=== PATIENT | female | born 1985 | race Caucasian/White ===

== ENCOUNTER 2016-09-08 18:11 | Inpatient (IN) | payer MEDICAID ==
[~2016-09-08] VITALS: Ht 147.3 cm; Wt 71.8 kg
[2016-09-08 18:58] VITALS: Ht 147.3 cm; Wt 71.8 kg
[2016-09-08 19:00] VITALS: BP 128/76; PULSE 93; RESP 18
[2016-09-08] MEDS ORDERED: PREN1TAB13 PO (19:03)
--- NOTE | 2016-09-08 19:28 | RADRPT ---
PROCEDURE: US OB biophysical profile. CLINICAL INDICATION: decreased movements TECHNIQUE: Multiple sonographic images of the pelvis were obtained. The images were reviewed on a PACS workstation. COMPARISON: No prior studies are available for comparison. FINDINGS: There is a single viable intrauterine gestation. Cardiac activity is present with 144 beats per min azael. There is a vertex presentation. The placenta is posterior. There is no evidence of placental abruption. There is a normal amount of amniotic fluid with an THEO = 14.4 cm. Biophysical profile: movement 2/2 tone 2/2. breathing 2/2 THEO 2/2 Total 11/11 RPTAT: AA . IMPRESSION: Normal biophysical profile. . .Scott Valdez MD, MD Date Time Electronically viewed and signed by .Scott Valdez MD, MD on 09/08/2016 19:27 .S/
--- NOTE | 2016-09-08 19:30 | RADRPT ---
PROCEDURE: US OB. CLINICAL INDICATION: Size and dates , contractions TECHNIQUE: Multiple sonographic images of the pelvis and gravid uterus were obtained. The images were reviewed on a PACS workstation. COMPARISON: No prior studies are available for comparison. FINDINGS: There is a single viable intrauterine gestation. Cardiac activity is present with 163 beats per min knik. There is a vertex presentation. The placenta is posterior. There is no evidence for an abruption or placenta previa. There is a normal amount of amniotic fluid with an THEO = 14.4 cm. Measurements were made in order to determine age. The results are as follows: BPD =9.1 cm HC =31.9 cm AC =35.7 cm FL =7.2 cm Estimated gestational age of approximately 37 weeks and 2 days based on ultrasound measurements. Clinical age: 37 weeks and 0 days. The estimated date of delivery is 09/27/16, based on ultrasound measurements. The EFW = 3430 g, 85%, based on LMP age. RPTAT: AA IMPRESSION: Single viable intrauterine gestation of approximately 37 weeks and 2 days based on ultrasound measu rements. .Scott Valdez MD, Date Time Electronically viewed and signed by .Scott Valdez MD, on 09/08/2016 19:29 .S/
[2016-09-08 19:46] LABS: ADD UMIC NO; URINE BILIRUBIN (Dip) NEGATIVE (NEGATIVE); URINE BLOOD (Dip) NEGATIVE (NEGATIVE); URINE COLOR LT. YELLOW (YELLOW); URINE GLUCOSE (Dip) NEGATIVE (NEGATIVE); URINE KETONES (Dip) 15 (NEGATIVE); URINE LEUKOCYTE ESTERASE (Dip) NEGATIVE (NEGATIVE); URINE NITRITE (Dip) NEGATIVE (NEGATIVE); URINE TOTAL PROTEIN (Dip) NEGATIVE (NEGATIVE); URINE UROBILINOGEN (Dip) 0.2 E.U./dL (0.1-1.0)
[2016-09-08 19:49] LABS: ADD SCAN DIFF NO
[2016-09-08 19:53] LABS: BASOPHILS % 0.2 % (0.0-2.0); EOSINOPHILS # 0.1 10^3/ul (0.0-0.5); EOSINOPHILS % 0.9 % (0.0-7.0); HEMATOCRIT 35.6 % (37.0-47.0); HEMOGLOBIN 12.1 g/dl (12.0-16.0); LYMPHOCYTES # 1.5 10^3/ul (0.8-2.9); LYMPHOCYTES % 16.6 % (15.0-51.0); MEAN CORPUSCULAR HEMOGLOBIN 31.8 pg (29.0-33.0); MEAN CORPUSCULAR VOLUME 93.7 fl (82.0-101.0); MEAN PLATELET VOLUME 11.6 fl (7.4-10.4); MONOCYTE # 0.6 10^3/ul (0.3-0.9); MONOCYTES % 7.2 % (0.0-11.0); NEUTROPHIL # 6.6 10^3/ul (1.6-7.5); NEUTROPHILS % 74.4 % (39.0-77.0); PLATELET COUNT 198 10^3/UL (140-415); RED CELL DISTRIBUTION WIDTH 13.3 % (11.5-14.5); WHITE BLOOD COUNT 8.8 10^3/ul (4.8-10.8)
[2016-09-08 20:03] LABS: INR 0.88; PROTIME 11.9 Sec (12.2-14.2); PT RATIO 0.9
[2016-09-08 20:11] LABS: ALBUMIN 4.1 g/dl (3.3-4.9); ALBUMIN/GLOBULIN RATIO 1.41; BILIRUBIN,INDIRECT 0.2 mg/dl (0-1.1); BILIRUBIN,TOTAL 0.2 mg/dl (0.2-1.3); CALCIUM 9.4 mg/dl (8.4-10.2); CREATININE 0.47 mg/dl (0.44-1.00); POTASSIUM 3.9 mmol/L (3.5-5.1); URIC ACID 6.1 mg/dl (3.1-7.9)
[2016-09-08] MEDS ORDERED: LACTATED RINGER'S 1,000 ML IV SCH (20:54)
[2016-09-08] MEDS ORDERED: CEFAZOLIN 2 GM/50 ML (PMX) 50 ML IV SCH (21:00)
[2016-09-08] MEDS ORDERED: OXYTOCIN 30 UNITS/LR 500 ML IV PRN (21:00)
[2016-09-08] MEDS ORDERED: METHYLERGONOVINE 0.2 MG INJ IM PRN (21:00)
[2016-09-08] MEDS ORDERED: MISOPROSTOL 200 MCG TAB PR PRN (21:00)
[2016-09-08] MEDS ORDERED: CARBOPROST 250 MCG INJ IM PRN (21:00)
[2016-09-08] MEDS ORDERED: OXYTOCIN 30 UNITS/LR 500 ML IV SCH (21:00)
[2016-09-08] MEDS ORDERED: CITRIC ACID/SODIUM CITRATE 15 ML CUP ONE ×2 (21:11→21:17)
[2016-09-08] MEDS ORDERED: ONDANSETRON 4 MG INJ ONE (21:11)
[2016-09-08] MEDS ORDERED: ONDANSETRON 4 MG INJ IV STA (21:33)
[2016-09-08] MEDS ORDERED: morphine SULFATE/PF (10 MG/10 ML) INJ ONE (21:53)
[2016-09-08] MEDS ORDERED: FENTAnyl 50 MCG/ML VIAL ONE (21:53)
[2016-09-08] MEDS ORDERED: PHENYLephrine (100 MCG/ML) 5ML SYG ONE (21:53)
[2016-09-08] MEDS ORDERED: OXYTOCIN 10 UNIT INJ ONE (21:53)
[2016-09-08] MEDS ORDERED: METOCLOPRAMIDE 10 MG INJ ONE (21:53)
[2016-09-08] MEDS ORDERED: CITRIC ACID/SODIUM CITRATE 15 ML CUP PO ONE (22:00)
[2016-09-08] MEDS ORDERED: MIDAZOLAM 1 MG/ML 2 ML INJ IV PRN (22:30)
[2016-09-08] MEDS ORDERED: DIPHENHYDRAMINE 50 MG INJ IV PRN ×2 (22:30)
[2016-09-08] MEDS ORDERED: TRIMETHOBENZAMIDE 100 MG/ML VIAL IM PRN (22:30)
[2016-09-08] MEDS ORDERED: EPHEDrine SULFATE 50 MG/5 ML SYG IV PRN (22:30)
[2016-09-08] MEDS ORDERED: HYDROmorphONE (0.2 MG/ML) 10ML SYG IV PRN ×3 (22:30)
[2016-09-08] MEDS ORDERED: NALOXONE (0.4 MG/ML) INJ IV PRN (22:30)
[2016-09-08] MEDS ORDERED: MEPERIDINE 25 MG INJ IV PRN (22:30)
[2016-09-08] MEDS ORDERED: FENTAnyl 50 MCG/ML VIAL IV PRN ×3 (22:30)
[2016-09-08] MEDS ORDERED: LABETALOL HCL 20MG INJ IV PRN (22:30)
[2016-09-08] MEDS ORDERED: ZOLPIDEM 5 MG TAB PO PRN (22:30)
[2016-09-08] MEDS ORDERED: morphine 2 MG INJ IV PRN ×2 (22:30)
[2016-09-08] MEDS ORDERED: ONDANSETRON 4 MG INJ IV PRN ×2 (22:30)
[2016-09-08] MEDS ORDERED: hydrALAzine 20 MG INJ IV PRN (22:30)
[2016-09-09 01:45] VITALS: BP 129/67; PULSE 72; RESP 18
[2016-09-09] MEDS ORDERED: LANOLIN 7 GM TUBE TOP PRN (02:00)
[2016-09-09] MEDS ORDERED: METHYLERGONOVINE 0.2 MG INJ IM PRN (02:00)
[2016-09-09] MEDS ORDERED: MISOPROSTOL 200 MCG TAB PR PRN (02:00)
[2016-09-09] MEDS ORDERED: CARBOPROST 250 MCG INJ IM PRN (02:00)
[2016-09-09] MEDS ORDERED: OXYTOCIN 30 UNITS/LR 500 ML IV PRN (02:00)
[2016-09-09 04:11] VITALS: BP 128/69; PULSE 86; RESP 18
[2016-09-09] MEDS: LACTATED RINGER'S 1,000 ML IV SCH ×3 (05:02→16:38)
[2016-09-09] MEDS: KETOROLAC 30 MG INJ IV PRN ×2 (05:28→16:37)
[2016-09-09 08:00] VITALS: BP 124/70; PULSE 70; RESP 18
[2016-09-09 08:09] LABS: ADD SCAN DIFF NO
[2016-09-09 08:13] LABS: BASOPHILS % 0.3 % (0.0-2.0); EOSINOPHILS # 0.1 10^3/ul (0.0-0.5); EOSINOPHILS % 1.1 % (0.0-7.0); HEMATOCRIT 30.7 % (37.0-47.0); HEMOGLOBIN 10.4 g/dl (12.0-16.0); LYMPHOCYTES # 1.3 10^3/ul (0.8-2.9); LYMPHOCYTES % 17.2 % (15.0-51.0); MEAN CORPUSCULAR HGB CONC 33.9 g/dl (32.0-37.0); MEAN CORPUSCULAR VOLUME 94.5 fl (82.0-101.0); MEAN PLATELET VOLUME 11.7 fl (7.4-10.4); MONOCYTE # 0.7 10^3/ul (0.3-0.9); MONOCYTES % 9.1 % (0.0-11.0); NEUTROPHIL # 5.3 10^3/ul (1.6-7.5); NEUTROPHILS % 71.8 % (39.0-77.0); PLATELET COUNT 172 10^3/UL (140-415); RED BLOOD COUNT 3.25 10^6/ul (4.20-5.40); RED CELL DISTRIBUTION WIDTH 13.2 % (11.5-14.5); WHITE BLOOD COUNT 7.4 10^3/ul (4.8-10.8)
--- NOTE | 2016-09-09 08:20 | QN ---
Documentation Comment POD#1 is stable afebrile tolerates diet No VB +Flatus +Adequate urine VS stable Gen NAD Abd soft NT ND Dressing to be removed Genitalia No blood at perinium --->Ambulation --->discharge plan tomorrow ANDRA SMITH M.D. Sep 09, 2016 08:20
--- NOTE | 2016-09-09 08:22 | HP ---
Date/Time of Note Date/Time of Note DATE: 09/09/16 TIME: 08:20 OB - History Hx of Present Free Text/Dictation @37+wks GA in early labor Previous c/section : 4 Para: 3 Care: Good Care Ultrasounds: Normal mid trimester US Obstetrical Complications: None Medical Complications: None Past Family/Social History * Past Medical, Surgical, Family and Obstetric Histories reviewed from chart. OB Admission Exam Vital Signs Vital Signs Vital Signs Date Time Temp Pulse Resp B/P Pulse Ox O2 Delivery O2 Flow Rate FiO2 09/09/16 04:11 98.5 86 18 128/69 Room Air 09/09/16 03:38 97 21 Physical Exam Abdomen: WNL Extremities: Normal Cervical Dilatation: 2cm Effacement: 75% Station: -1 Membranes: Intact Heart Rate: 140's Accelerations: Accelerations Present Decelerations: No Decelerations Varibility: Moderate Contractions on Admission: < 5 Minutes Apart Last 72 hours Lab Results CBC & BMP 09/08/16 19:40 09/09/16 07:36 Liver Function Test 09/08/16 19:40 Alanine Aminotransferase (ALT/SGPT) 48 Albumin 4.1 Alkaline Phosphatase 203 H Aspartate Amino Transf (AST/SGOT) 34 Direct Bilirubin 0.00 Total Protein 7.0 OB Assessment/Plan Reason for admission: section Plan: Section ANDRA SMITH M.D. Sep 09, 2016 08:22
--- NOTE | 2016-09-09 08:23 | OPR ---
Operative Report Planned Procedure Free Text/Dictation @37+wks GA in early labor Previous c/section Procedure date Sep 09, 2016 Procedure(s) repeat c/section Performed by: ANDRA SMITH M.D. Assisting provider: DAFNE REBOLLAR Anesthesiologist: Gene eVla M.D. Pre-procedure diagnosis @37+wks GA in early labor Previous c/section Anesthesia Type: spinal Procedure Description Under satisfactory [] anesthesia, the patient was prepped and draped and placed in a supine position, tilted to the left. Pfannenstiel incision was made, carried through the subcutaneous tissue. Bleeders brought under control with electrocautery. Fascia incised to the length of the incision. Rectus muscles from the fascia, divided midline. Peritoneum exposed, entered through a transverse incision. Exploration of abdomen revealed gravid uterus. Bladder flap was developed. Transverse incision was made in the lower segment of the uterus. Amniotic sac ruptured. [] amniotic fluid noted. [] Nasal oropharyngeal suction was performed. The baby was handed to the team for immediate attention. The placenta was delivered manually intact. Uterine cavity was cleaned with wet sponge and drainage established. Uterus closed in 2 layers using [] in continuous fashion. Peritoneal cavity irrigated with warm saline. Sponge, needle and instrument count reported to be correct. Abdominal peritoneum closed with [] continuously. Rectus muscle approximated with []. Fascia closed with [], and skin closed with darrell. Estimated blood loss [600] mL. Urine bag contained []mL of urine Post-Procedure Findings: Live Baby [], Apgars [] and [], weight [], position [], [] presentation []cord. Specimen removed: Yes Complications: None Complications none Pt Condition post procedure: stable Disposition: PACU Physician Certification I, the undersigned physician, hereby certify that I have discussed the procedure described in this consent form with this patient (or the patient's legal metals sales representative), including: * The risk and benefits of the procedure; * Any adverse reactions that may reasonably be expected to occur; * Any alternative efficacious methods of treatment which may be medically viable ; * The potential problems that may occur during recuperation; * Potential for blood transfusion and associated risks/benefits; and * Any research or economic interest I may have regarding this treatment. I further certify that the patient/legally responsible person was encouraged to ask question and that all questions were answered. ANDRA SMITH M.D. Sep 09, 2016 08:23
[2016-09-09] MEDS: SENNA/DOCUSATE NA (8.6MG/50MG) TAB PO SCH ×2 (09:32→20:39)
[2016-09-09 12:00] VITALS: BP 115/78; PULSE 70; RESP 16
[2016-09-09 16:00] VITALS: BP 121/74; PULSE 80; RESP 18
[2016-09-09] MEDS: IBUPROFEN 600 MG TAB PO SCH ×2 (18:00→23:32)
[2016-09-09 19:45] VITALS: BP 108/67; PULSE 82; RESP 18
[2016-09-10] MEDS: OXYCODONE/ACETAMINOPHEN (5/325) TAB PO PRN ×3 (01:24→19:30)
[2016-09-10] MEDS: LACTATED RINGER'S 1,000 ML IV SCH (01:43)
[2016-09-10 03:30] VITALS: BP 110/70; PULSE 88; RESP 20
[2016-09-10] MEDS: IBUPROFEN 600 MG TAB PO SCH ×4 (05:48→23:23)
[2016-09-10 08:00] VITALS: BP 109/65; PULSE 70; RESP 18
[2016-09-10] MEDS: SENNA/DOCUSATE NA (8.6MG/50MG) TAB PO SCH ×2 (09:17→21:17)
[2016-09-10 16:00] VITALS: BP 129/79; PULSE 18; RESP 17
[2016-09-10 19:30] VITALS: BP 132/80; PULSE 75; RESP 17
--- NOTE | 2016-09-10 23:58 | QN ---
Documentation Comment POD#2 is stable afebrile tolerates diet No VB +BM +voids VS stable Gen NAD Abd soft NT ND Incision intact Genitalia No blood at perinium --->Ambulation --->discharge plan tomorrow --->removal of darrell tomorrow ANDRA SMITH M.D. Sep 10, 2016 23:58
[2016-09-11] MEDS: OXYCODONE/ACETAMINOPHEN (5/325) TAB PO PRN ×2 (01:53→08:21)
[2016-09-11 03:40] VITALS: BP 127/80; PULSE 71; RESP 17
[2016-09-11] MEDS: IBUPROFEN 600 MG TAB PO SCH ×2 (05:46→12:33)
[2016-09-11] MEDS: SENNA/DOCUSATE NA (8.6MG/50MG) TAB PO SCH (08:21)
[2016-09-11 08:22] VITALS: BP 128/75; PULSE 79; RESP 18
[2016-09-11] MEDS ORDERED: DIPHTH/TET/ACEL PERTUSS (ADULT) 0.5 ML VIAL IM* ONE (09:00)
== END 2016-09-11 15:55 | disposition home or self-care (01) | DRG 766 ==
LOC: OBT 18:11 → L-D 18:11 → OBT 19:52 → L-D 21:31 → PP1 09-09 01:37
PROVIDERS: ADMIT Obstetrics & Gynecology; ATTEND Obstetrics & Gynecology
PROC: 10D00Z1 Extraction of Products of Conception, Low, Open Approach (ICD-10-PCS; principal; 2016-09-09)
DX: O34.211 Maternal care for low transverse scar from previous cesarean delivery (principal); Z37.0 Single live birth; Z3A.37 37 weeks gestation of pregnancy
CPT/HCPCS: 76815; 76818; 80053; 81003; 84560; 85025; 85610; 85730; 86592; 86850; 86900; 86901; 90715; 94760; 96360; 99464; G0463; J0690; J1885; J2274; J2370; J2405; J2590; J2765; J3010; J7120